=== PATIENT | male | born 1955 | race Caucasian/White ===

== ENCOUNTER → 2022-03-19 16:07 | Outpatient (CLI) | payer MEDICARE, SELFPAY ==
--- NOTE | ~2022-03-19 | XR_ITS ---
XR shoulder LT min 2V DATE: 03/19/2022 16:24 INDICATION: Left shoulder pain TECHNIQUE: 5 views COMPARISON: None FINDINGS: There is severe joint space and prominent particular spurring of the left glenohumeral join t. Mild degenerative change at the left acromion clavicular joint. No fracture or dislocation, periosteal reaction or bone destruction or abnormal left shoulder soft ti ssue calcification is noted. IMPRESSION: Severe osteoarthritis of the left glenohumeral joint Reviewed, dictated and finalized at location A.
== END ==
PROVIDERS: PCP Family Medicine; Visit Provider Family Medicine
DX: M19.012 Primary osteoarthritis, left shoulder (principal)
CPT/HCPCS: 73030

== ENCOUNTER 2023-03-05 10:33 | Emergency (ER) | payer MEDICARE, SELFPAY ==
[2023-03-05 10:51] VITALS: BP 138/86; PULSE 83; RESP 18; TEMP 37.1; O2SAT 100
--- NOTE | 2023-03-05 11:02 | ED.URI ---
HPI - URI/Sore Throat General Chief Complaint: Upper Respiratory Infection Stated Complaint: sorethroat,bilateral ear pain Time Seen by Provider: 03/05/23 10:40 Source: patient Mode of arrival: ambulatory Limitations: no limitations History of Present Illness HPI Narrative: 67-year-old male presents with complaint sore throat, nasal congestion, cough, fatigue past 3-4 days. Afebrile. Denies nausea vomiting diarrhea. No chest pain or shortness of breath. Reports recent exposure to strep from his grandson. Not taking any [id number] medications to treat his symptoms. All systems reviewed and negative except as noted above. Related Data Allergies Allergy/AdvReac Type Severity Reaction Status Date / Time Penicillins Allergy Unknown Unknown Verified 03/05/23 10:56 Review of Systems Review of Systems: CONSTITUTIONAL: Denies fever, chills, or sweats. reports fatigue. EYES: Denies visual changes, redness, or discharge. ENT: Reports rhinorrhea, congestion, sore throat. Denies otalgia. CARDIOVASCULAR: Denies chest pain, palpitations, or edema. RESPIRATORY: Reports cough. Denies dyspnea. GASTROINTESTINAL: Denies abdominal pain, nausea, vomiting, or diarrhea. GENITOURINARY: Denies dysuria or hematuria. SKIN: Denies rash or itching. MUSCULOSKELETAL: Denies back pain, joint pain, or myalgia. NEUROLOGIC: Denies headache, numbness, or weakness. PSYCHIATRIC: Denies anxiety or depression. All other systems reviewed are negative, except as documented in HPI. [facility] Past Medical History Medical History (Updated 03/05/23 @ 11:05 by Catie Gonzalez NP) Abnormal fasting glucose glucose 110 with hemoglobin A1c 5.7 on 08/16/2021. Glucose 113 with hemoglobin A1c 5.9 on 08/26/2022. 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 Chronic pain of right knee Colon cancer screening daughter with history of colon cancer. Patient had normal colonoscopy March, with recheck every 5 years COVID ~05/23/22 Encounter for prostate cancer screening PSA 0.47 on 08/26/2022. Essential (primary) hypertension Hypersomnia Hypertension Male erectile dysfunction, unspecified Melanoma 1998 Mixed hyperlipidemia total cholesterol 163, triglycerides 127, HDL 40, LDL 101 on 08/16/2021. Total cholesterol 171, triglycerides 203, HDL 34, LDL 105 with ratio 5.0 on 08/26/2022. Nail fungal infection Neoplasm of skin (~09/09/21) suspicious skin lesion base right neck laterally with possible basal cell Nocturia PSA 0.43 on 08/16/2021. PSA 0.47 on 08/26/2022. Obesity (BMI 30-39.9) Obesity (BMI 30.0-34.9) Osteoarthritis involving multiple joints on both sides of body Osteoarthritis of right knee Toe ulcer, right Surgical History Surgical History H/O colonoscopy (~03/2019) H/O knee surgery (~2004) Right knee arthroscopy x2 Family History Family History Mother Dementia Father , 20 years old Polioencephalitis Grandparent No problems noted. Grandparent CHF (congestive heart failure) Grandparent Respiratory failure Social History Social History (Updated 09/16/22 @ 11:11 by Alexandra Alexander MA) Smoking status: Never smoker Alcohol intake: current Alcohol use details: beer two or three times a year Substance use: never Substance use type: does not use Current Housing: Decline to Answer Concerned About Future Housing: Decline to Answer Difficulty Paying Gas/Electric Bills: Decline to Answer
== END 2023-03-05 11:14 | disposition home or self-care (01) ==
PROVIDERS: Emergency Provider Nurse Practitioner Family; PCP Family Medicine
DX: J06.9 Acute upper respiratory infection, unspecified (principal); Z20.818 Contact with and (suspected) exposure to other bacterial communicable diseases; Z20.822 Contact with and (suspected) exposure to COVID-19; I10 Essential (primary) hypertension; E78.2 Mixed hyperlipidemia; E66.9 Obesity, unspecified; Z68.32 Body mass index [BMI] 32.0-32.9, adult; M17.11 Unilateral primary osteoarthritis, right knee; Z85.820 Personal history of malignant melanoma of skin
CPT/HCPCS: 87081; 87426; 87880; 99213; C9803; G0463

== ENCOUNTER 2025-04-07 13:25 | Outpatient (CLI) | payer MEDICARE, SELFPAY ==
--- OUTSIDE RECORDS SUMMARY | 2025-04-07 13:27 | XMS_ITS | Clinical Summary ---
Author Organization [facility] Address [address] [place] [address] Care Team Providers Care Line Staker Name Role Phone Nathaniel Rouse MD Primary Care Provider [phone] Allergies Active Allergy Reactions Criticality Noted Date Comments Penicillins Hives,Itching Medium 11/30/2024 Medications amLODIPine (NORVASC) 5 mg tabletIndication s:hypertension Take 1 tablet (5 mg total) by mouth every morning 5 Active atorvastatin (LIPITOR) 10 mg tabletIndication s:hyperlipidemia Take 1 tablet (10 mg total) by mouth nightly at bedtime. [address] (VOLTAREN) 75 mg EC tabletIndication s:Pain Take 1 tablet (75 mg total) by mouth 2 (two) times a day [address] (CYMBALTA) 60 mg capsuleIndicatio ns:Anxiety with Depression Take 1 capsule (60 mg total) by mouth every morning 5 Active irbesartan-hydro chlorothiazide (AVALIDE) 150-12.5 mg per tabletIndication s:hypertension Take 1 tablet by mouth every morning 4 Active levothyroxine (SYNTHROID) 50 mcg tabletIndication s:hypothyroidism Take 1 tablet (50 mcg total) by mouth herbologist before breakfast 5 Active metFORMIN (GLUCOPHAGE) 500 mg tabletIndication s:type 2 diabetes mellitus Take 1 tablet (500 mg total) by mouth 2 (two) times a day with meals 5 Active tamsulosin (FLOMAX) 0.4 mg extended release capsuleIndicatio ns:benign prostatic hyperplasia with lower urinary tract sx Take 1 capsule (0.4 mg total) by mouth every morning 5 Active vitamin E acetate (VITAMIN E ORAL)Indications :supplement Take 180 mg by mouth every morning Active ascorbic acid (vitamin C) 1,000 mg tabletIndication s:supplement Take 1 tablet (1,000 mg total) by mouth every morning Active ibuprofen 200 mg tab/capIndicatio ns:Pain Take 2 tablet/capsule (400 mg total) by mouth every 6 (six) hours as needed for pain Active cholecalciferol (VITAMIN D-3) 2000 unit tabletIndication s:Prevention of Vitamin D Deficiency Take 1 tablet (2,000 Units total) by mouth every morning Active OMEGA-3 FATTY ACIDS-FISH OIL ORALIndications: supplement Take 1,200 mg by mouth every morning Active magnesium oxide 400 mg magnesium capsuleIndicatio ns:supplement Take 1 tablet by mouth nightly Active cranberry extract 500 mg capsuleIndicatio ns:supplement Take 1 capsule by mouth every morning Active vitamin b complex tabletIndication s:Vitamin Deficiency Prevention Take 1 tablet by mouth every morning Active glucosamine/dale priscilla castro A/C/Mn (GLUCOSAMINE-CHO NDROITIN COMPLX ORAL)Indications :supplement Take 1 tablet by mouth every morning Active multivitamin tabletIndication s:Vitamin Deficiency Prevention Take 1 tablet by mouth every morning Active mupirocin (BACTROBAN) 2 % ointment Apply topically 2 (two) times a day for 5 days APPLY TO NOSTRILS TWICE A DAY FOR 5 DAYS PRIOR TO SURGERY. 22 g 5 04/11/20 25 Active Active Problems Problem Noted Date Diagnosed Date Primary osteoarthritis of right knee 01/04/2025 Encounters Date Type Department Care Team Description 04/06/2025 Orders Only [facility] Orthopaedic Surgery [address] [facility] [address] [place] [address] Piero Aguilar MD 04/04/2025 10:45 AM CDT Lab [facility] [address] [address] [address] Preoperative testing; Primary osteoarthritis of right knee; Disorder of cartilage, unspecified; Preop examination; Type 2 diabetes mellitus without complication, unspecified whether correction insulin use (HCC) 04/04/2025 10:30 AM CDT Pre-Admission Testing [facility] Pre-Anesthesia Testing [address] [address] Preoperative testing (Primary Dx) from Last 3 Months Surgical History Surgery Date Site/Laterality Comments MELANOMA RESECTION 09/07/1997 - 09/06/1998 COLONOSCOPY KNEE SURGERY Right scope ESOPHAGOGASTRODUODENOSCOPY CATARACT EXTRACTION 09/07/2021 - 09/06/2022 Family History Medical History Relation Name Comments Anesthesia problems Neg Hx Social History Tobacco Use Types Packs/Day Years Used Date Smoking Tobacco: Never Smokeless Tobacco: Never Tobacco Cessation:Counseling Given: No AUDIT-C Answer Date Recorded Q1: How often do you have a drink containing alcohol? Never 04/04/2025 Q2: How many drinks containi ng alcohol do you have on a typical day when you are drinking? Patient does not drink Q3: How often do you have si x or more drinks on one occasion? Never 04/04/2025 Personal Safety Answer Date Recorded Have you ever been in or are you currently in a harmful physical or emotional relationship or is someone making you feel afraid or unsafe? Denies 04/04/2025 Sex and Gender Information Value Date Recorded Sex Assigned at Not on file Legal Sex Male 10:02 AM CDT Gender Identity Not on file Sexual Orientation Not on file Obstetrics History Last Filed Vital Signs Vital Sign Reading Time Taken Comments Blood Pressure 120/72 04/04/2025 10:43 AM CDT Pulse 76 04/04/2025 10:40 AM CDT Temperature - - Respiratory Rate 18 04/04/2025 10:40 AM CDT Oxygen Saturation 99% 04/04/2025 10:40 AM CDT Inhaled Oxygen Concentration - - Weight 113 kg (249 lb 3.2 oz) 04/04/2025 10:40 A M CDT Height 182.9 cm (6') 04/04/2025 10:40 AM CDT Body Mass Index 33.8 04/04/2025 10:40 AM CDT Plan of Treatment Upcoming Encounters Date Type Department Care Team (Latest Contact Info) Description 04/25/2025 11:35 AM CDT Hospital Encounter [facility] Operating Room [address] [address] Piero Aguilar MD [address] [place] [address] 04/25/2025 11:35 AM CDT Anesthesia Event [facility] Operating Room [address] [address] [address] Jermain Gonzalez, [employer] [address] [facility] [phone] [place] [address] 04/25/2025 11:35 AM CDT - 04/25/2025 1:30 PM CDT Surgery [facility] Operating Room [address] [address] Piero Aguilar MD [address] [place] [address] ARTHROPLASTY TOTAL KNEE - DEPUY Scheduled Procedures Name Priority Associated Diagnoses Date/Ti me ARTHROPLASTY TOTAL KNEE - DEPUY Primary osteoarthritis of right knee 04/25/2025 11:35 AM CDT Health Maintenance Due Date Last Done Comments Albumin Creatinine Ratio, Urine 1954 Colon Cancer Screening-Colonoscopy 1954 Depression Screening 1954 Hepatitis C Screening 1955 Dilated Eye Exam 1954 Foot Exam 1954 Lipid Panel 1954 Hepatitis B Screening 1972 Zoster Vaccine (2 of 3) 10/02/2016 08/07/2016 Well Visit 65+ 2019 Covid-19 Vaccine (5 - 2023-2 5 season) 2024 06/16/2022, 08/22/2021, 11/23/2020, Additional history exists Influenza Vaccine (#1) 2025 , 06/15/2023, 06/12/2022, Additional history exists Hemoglobin A1C 10/05/2025 04/04/2025 Fall Risk Assessment 04/04/2026 04/04/2025 eGFR 04/04/2026 04/04/2025 DTaP/Tdap/Td Vaccine (2 - Td or Tdap) 12/20/2028 12/20/2018 Pneumococcal vaccine 65+ Completed 07/19/2020, 06/07 Procedures Procedure Name Priority Date/Time Associated Diagnosis Comments EGFR Routine 04/04/2025 11:51 AM CDT Primary osteoarthritis of right knee HEMOGLOBIN A1C Routine 04/04/2025 11:51 AM CDT Preop examination Type 2 diabetes mellitus without complication, unspecified whether lobsterman insulin use (HCC) VITAMIN D 25 HYDROXY Routine 04/04/2025 11:51 AM CDT Primary osteoarthritis of right knee Disorder of cartilage, unspecified COMPREHENSIVE METABOLIC PANEL Routine 04/04/2025 11:51 AM CDT Primary osteoarthritis of right knee CBC WITHOUT DIFFERENTIAL Routine 04/04/2025 11:51 AM CDT Preoperative testing from Last 3 Months Results * eGFR (04/04/2025 11:51 AM CDT) eGFR 89 >=60 mL/min/1. 73 m2 Comment: Interpretive Data Reference Interval Normal >/= 90 mL/min/1.73m2 Mildly decreased* 60 - 89 mL/min/1.73m2 Mildly to moderately decreased 45 - 59 mL/min/1.73m2 Moderately to severely decreased 30 - 44 mL/min/1.73m2 Severely decreased 15 - 29 mL/min/1.73m2 Kidney Failure < 15 mL/min/1.73m2 *Relative to young adult level Estimated glomerular filtration rate is determined by the 2020 CKD-EPI equation recommended by the National Kidney Foundation (A Unifying Approach to GFR Estimation: Recommendations of the NKF-ASK Task Force on Reassessing the Inclusion of Race in Diagnosing Kidney Disease, JASN 2020). The CKD-EPI equation should not be used for patients with unstable renal function and has not been validated in children and those over 70. Current interpretive data was last reviewed 2021. Blood 04/04/2025 11:5 1 AM CDT 04/04/2025 12:14 PM CDT Piero Aguilar MD LAB BLOOD ORDERABLES Cinthia l Result Performing Organization Address [facility] [[email or web address]] Co de Phone Number SANKET VANN [address] [address] [facility] [place] [address] * Vitamin D 25 hydroxy (04/04/2025 11:51 AM CDT) Pathologist [facility] Vitamin D 25-OH 39 30 - 80 ng/mL Blood 04/04/2025 11:5 1 AM CDT 04/04/2025 12:14 PM CDT Piero Aguilar MD LAB BLOOD ORDERABLES Cinthia l Result Performing Organization Address [facility] de Phone Number SANKET BARK[place] [address] [address] [facility] [address] [place], [place] [id number] * CBC without differential (04/04/2025 11:51 AM CDT) [facility] WBC 8.60 3.80 - 9.90 K/cumm Hgb 13.8 13.0 - 17.5 g/dL [facility] Hct 41.5 38.9 - 50.3 % [facility] Plt 178 150 - 400 K/cumm [facility] MPV 9.6 9.1 - 12.3 fL [facility] RBC 4.89 4.30 - 5.80 M/cumm [facility] MCV 84.9 81.3 - 96.4 fL [facility] MCH 28.2 27.1 - 33.3 pg [facility] MCHC 33.3 32.3 - 35.7 g/dL [facility] RDW CV 14.2 11.1 - 14.9 % [facility] RDW SD 43.5 35.7 - 48.1 fL [facility] NRBC abs 0.00 0.00 - 0.01 K/cumm [facility] Blood 04/04/2025 11:5 1 AM CDT 04/04/2025 12:13 PM CDT Jermain Gonzalez NP LAB BLOOD ORDERABLES Fin al Result Performing Organization Address [facility] de Phone Number [facility] [address] [address] [place] [address] * (ABNORMAL) Hemoglobin A1c (04/04/2025 11:51 AM CDT) Hgb A1C 6.6(H) 4.0 - 5.6 % Estimated Average Glucose 143 mg/dL [facility] Comment: The ADA recommends reporting an estimated Average Glucose (eAG) with all Hemoglobin A1c results using the equation derived from a study of 507 normal and diabetic adults. Minority populations were underrepresented and children were not included. (Diabetes Care 31:1174-2255, 2008). The eAG is not equivalent to a fasting glucose. Blood 04/04/2025 11:5 1 AM CDT 04/04/2025 12:13 PM CDT Piero Aguilar MD LAB BLOOD ORDERABLES Cinthia l Result Performing Organization Address [facility] de Phone Number [facility] [address] [facility] [place] [address] * Comprehensive metabolic panel (04/04/2025 11:51 AM CDT) Sodium 145 135 - 145 mmol/L Potassium, pl 4.0 3.3 - 4.9 mmol/L [facility] Chloride 106 97 - 110 mmol/L [facility] CO2 30 22 - 32 mmol/L [facility] Anion gap 9 2 - 15 mmol/L [facility] BUN 17 6 - 25 mg/dL [facility] Creatinine 0.92 0.80 - 1.30 mg/dL [facility] Glucose 149 70 - 199 mg/dL [facility] Comment: Interpretive Data Fasting glucose >/= 126 mg/dl is diagnostic for diabetes. Fasting is defined as no caloric intake for at least 8 hours. Fasting glucose between 100 mg/dl to 125 mg/dl is diagnostic of prediabetes. In a patient with classic symptoms of hyperglycemia or hyperglycemic crisis, a random glucose >/= 200 mg/dl is diagnostic for diabetes. In the absence of unequivocal hyperglycemia, results should be confirmed by repeat testing. The classification and Diagnosis of Diabetes Diabetes Care 202; 46: S19-S40. Current interpretive data was last revised 2022. Calcium 9.0 8.5 - 10.3 mg/dL [facility] Bilirubin, total 0.4 0.1 - 1.2 mg/dL [facility] Protein, pl 6.7 6.5 - 8.5 g/dL [facility] Albumin 4.2 3.5 - 5.0 g/dL [facility] Alk phos 61 40 - 130 Units/L [facility] ALT 24 7 - 55 Units/L [facility] AST 26 10 - 50 Units/L [facility] Blood 04/04/2025 11:5 1 AM CDT 04/04/2025 12:14 PM CDT Piero Aguilar MD LAB BLOOD ORDERABLES Cinthia l Result [facility] [address] [facility] Department [place] [address] from Last 3 Months Insurance MEDICARE RAILROAD [facility] MEDICARE SUPPLEMENT MEDICARE RAILROAD [address] MEDICARE SUPPLEMENT Advance Directives For more information, please contact: [phone] Documents on File Type Date Recorded Patient Birth Attendant Expl anation ADVANCE DIRECTIVE 04/05/2025 6:13 PM POWER OF SPECIAL EDUCATION PARA PROFESSIONAL-MEDICAL Care Teams Line Staker Relationship Specialty Start Date End Date Nathaniel Rouse MD [address] [address] PCP - General Family Medicine 11/25/24
--- OUTSIDE RECORDS SUMMARY | 2025-04-07 13:27 | XMS_ITS | Clinical Summary ---
Author Organization [facility] Address [facility] [place] [address] Care Team Providers Care Evaporator Helper Name Role Phone Unavailable Primary Care Provider Unavailabl e Social History Tobacco Use Types Packs/Day Years Used Date Smoking Tobacco: Never Assessed Sex and Gender Information Value Date Recorded Sex Assigned at Not on file Legal Sex Male 7:32 AM CDT Gender Identity Not on file Sexual Orientation Not on file Plan of Treatment Health Maintenance Due Date Last Done Comments Colorectal Cancer Screening Colonoscopy (10 Years) 1954 Hepatitis C 1972 DTaP, Tdap and Td Vaccines ( 1 - Tdap) 1973 Pneumococcal Vaccine: 50+ Ye ars (1 of 1 - PCV) 2004 Zoster Vaccines (1 of 2) 2004 COVID-19 Vaccine ( - 2023-2 5 season) 2024 RSV Immunization or 60+ Years (1 - 1-dose 75+ series) 2029 Meningococcal B Vaccine Aged Out No l onger eligible based on patient's age to complete this topic Meningococcal Vaccine Aged Out No nicole mirta eligible based on patient's age to complete this topic RSV Immunizations Under 20 Months Aged Out No longer eligible based on patient's age to complete this topic
--- OUTSIDE RECORDS SUMMARY | 2025-04-07 13:27 | XMS_ITS | Encounter Summary ---
Author Organization [facility] Address [address] [place] [address] Phone Care Team Providers Care It Service Delivery Manager Name Role Phone Nathaniel Rouse MD Primary Care Provider [phone] Encounter Details Date Type Department Care Team (Late st Contact Info) Description 04/06/2025 Orders Only [facility] Orthopaedic Surgery [address] [facility] [address] [place] [address] Piero Aguilar MD [address] [facility] [address] [place] [address] Social History Tobacco Use Types Packs/Day Years Used Date Smoking Tobacco: Never Smokeless Tobacco: Never AUDIT-C Answer Date Recorded Q1: How often [...] on file Sexual Orientation Not on file documented as of this encounter Ordered Prescriptions Prescription Sig Dispense Quantity Refills Last Filled Start Date End Date mupirocin (BACTROBAN) 2 % ointment Apply topically 2 (two) times a day for 5 days APPLY TO NOSTRILS TWICE A DAY FOR 5 DAYS PRIOR TO SURGERY. 22 g 04/06/2025 documented in this encounter Plan of Treatment Upcoming Encounters Date Type Department Care Team (Latest Contact Info) Description 04/25/2025 11:35 AM CDT Hospital Encounter [facility] Operating Room [address] [place] [address] Piero Aguilar MD [address] [facility] [address] [place] [address] 04/25/2025 11:35 AM CDT Anesthesia Event [facility] Operating Room [address] [place] [address] Jermain Gonzalez SECRETARIAL STENOGRAPHER [address] [facility] [phone] [place] [address] 04/25/2025 11:35 AM CDT - 04/25/2025 1:30 PM CDT Surgery [facility] Operating Room [address] [place] [address] Piero Aguilar MD [address] [facility] [address] [place] [address] ARTHROPLASTY TOTAL KNEE - DEPUY Scheduled Procedures Name Priority Associated Diagnoses Date/Ti me ARTHROPLASTY TOTAL KNEE - DEPUY Primary osteoarthritis of right knee 04/25/2025 11:35 AM CDT documented as of this encounter Visit Diagnoses Not on filedocumented in this encounter Care Teams It Service Delivery Manager Relationship Specialty Start Date End Date Nathaniel Rouse MD [address] [address] PCP - General Family Medicine 11/25/24 documented as of this encounter
--- OUTSIDE RECORDS SUMMARY | 2025-04-07 13:27 | XMS_ITS | Referral Summary ---
Author Organization [facility] Address [address] [place] [address] Care Team Providers Care Bread Slicer Machine Name Role Phone Nathaniel Rouse MD Primary Care Provider [phone] Encounters Date Type Department Care Team Description 04/06/2025 Orders Only [facility] Orthopaedic Surgery [address] [place] [address] Medical Office Building [address] [place] [address] Piero Aguilar MD 04/04/2025 10:45 AM CDT Lab [place] [id number] [place] [place] [id number] Preoperative testing; Primary osteoarthritis of right knee; Disorder of cartilage, unspecified; Preop examination; Type 2 diabetes mellitus without complication, unspecified whether jail insulin use (HCC) 04/04/2025 10:30 AM CDT Pre-Admission Testing [facility] Pre-Anesthesia Testing [address] [place] [address] Preoperative testing (Primary Dx) from Last 3 Months Allergies Active Allergy Reactions Criticality Noted Date Comments Penicillins Hives,Itching Medium 11/30/2024 Medications amLODIPine (NORVASC) 5 mg tabletIndication s:hypertension Take 1 tablet (5 mg total) by mouth every morning Active atorvastatin (LIPITOR) 10 mg tabletIndication s:hyperlipidemia [...] 1 tablet (50 mcg total) by mouth 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 before breakfast 5 Active metFORMIN (GLUCOPHAGE) 500 [...] Date Primary osteoarthritis of right knee 01/04/2025 Social History Tobacco Use Types Packs/Day Years [...] on file Sexual Orientation Not on file Last Filed Vital Signs Vital Sign Reading [...] Description 04/25/2025 11:35 AM CDT Hospital Encounter [facility] Operating Room [address] [place] [place] [address] Piero Aguilar MD [address] [place] [address] 04/25/2025 11:35 AM CDT Anesthesia Event [facility] Operating Room [address] [place] [address] Jermain Gonzalez, FUR COMBER [address] [facility] [phone] [place] [address] 04/25/2025 11:35 AM CDT - 04/25/2025 1:30 PM CDT Surgery [facility] Operating Room [address] [place] [place] [address] Piero Aguilar MD [address] [place] [address] ARTHROPLASTY TOTAL KNEE - DEPUY Scheduled Procedures Name Priority Associated Diagnoses Date/Ti me ARTHROPLASTY TOTAL KNEE - DEPUY Primary osteoarthritis of right knee 04/25/2025 11:35 AM CDT Procedures Procedure Name Priority Date/Time Associated Diagnosis Comments EGFR Routine 04/04/2025 11:51 AM CDT Primary osteoarthritis of right knee HEMOGLOBIN A1C Routine 04/04/2025 11:51 AM CDT Preop examination Type 2 diabetes mellitus without complication, unspecified whether jail insulin use (HCC) VITAMIN D 25 HYDROXY [...] AM CDT 04/04/2025 12:14 PM CDT Piero Aguilra MD LAB BLOOD ORDERABLES Cinthia l Result Performing Organization Address [facility] Co de Phone Number [facility] [address] [email or web address] [place], [place] [id number] * Vitamin D 25 hydroxy (04/04/2025 11:51 AM CDT) Vitamin D 25-OH 39 30 - 80 ng/mL Blood 04/04/2025 11:5 1 AM CDT 04/04/2025 12:14 PM CDT Piero Aguilar MD LAB BLOOD ORDERABLES Cinthia l Result Performing Organization Address City/[facility] Co de Phone Number [facility] [address] [employer] [email or web address] [address] * CBC without differential (04/04/2025 11:51 AM CDT) WBC 8.60 3.80 - 9.90 K/cumm Hgb 13.8 13.0 - 17.5 g/dL [facility] Hct 41.5 38.9 - 50.3 % [facility] Plt 178 150 - 400 K/cumm [facility] MPV 9.6 9.1 - 12.3 fL [facility] RBC 4.89 4.30 - 5.80 M/cumm [facility] MCV 84.9 81.3 - 96.4 fL [facility] MCH 28.2 27.1 - 33.3 pg [facility] MCHC 33.3 32.3 - 35.7 g/dL [facility] RDW CV 14.2 11.1 - 14.9 % [facility] RDW SD 43.5 35.7 - 48.1 fL [facility] NRBC abs 0.00 0.00 - 0.01 K/cumm [facility] Blood 04/04/2025 11:5 1 AM CDT 04/04/2025 12:13 PM CDT us Jermain Gonzalez NP LAB BLOOD ORDERABLES Fin al Result Performing Organization Address City/State/[facility] Phone Number [facility] [address] [facility]. Department [place] [address] * (ABNORMAL) Hemoglobin A1c (04/04/2025 11:51 AM CDT) Hgb A1C 6.6(H) 4.0 - 5.6 % Estimated Average Glucose 143 mg/dL [facility] Comment: The ADA recommends reporting an estimated Average Glucose (eAG) with all Hemoglobin A1c results using the equation derived from a study of 507 normal and diabetic adults. Minority populations were underrepresented and children were not included. (Diabetes Care 31:9856-5854, 2008). The eAG is not equivalent to a fasting glucose. Blood 04/04/2025 11:5 1 AM CDT 04/04/2025 12:13 PM CDT Piero Aguilar MD LAB BLOOD ORDERABLES Cinthia l Result Performing Organization Address City/State/[facility] Co de Phone Number [facility] [address] [facility]. Department [place] [address] * Comprehensive metabolic panel (04/04/2025 11:51 AM CDT) Sodium 145 135 - 145 mmol/L Potassium, pl 4.0 3.3 - 4.9 mmol/L [facility] Chloride 106 97 - 110 mmol/L [facility] CO2 30 22 - 32 mmol/L [facility] Anion gap 9 2 - 15 mmol/L [facility] BUN 17 6 - 25 mg/dL [facility] Creatinine 0.92 0.80 - 1.30 mg/dL [facility] [...] Albumin 4.2 3.5 - 5.0 g/dL [facility] Alk phos 61 40 - 130 Units/L [facility] ALT 24 7 - 55 Units/L [facility] AST 26 10 - 50 Units/L [facility] Blood 04/04/2025 11:5 1 AM CDT 04/04/2025 12:14 PM CDT Piero Aguilar MD LAB BLOOD ORDERABLES Cinthia l Result Performing Organization Address City/[facility]/ZIP Co de Phone Number [facility] [address] [facility] [place] [address] from Last 3 Months Insurance MEDICARE [place] [address] MEDICARE SUPPLEMENT [place]IC[place] [address] [place] [address] MEDICARE SUPPLEMENT Member Subscriber Plan / Payer (Ef fective 2021-Present) Name:Kiel Lyles Relation to Subscriber:Self Name:Kiel Lyles Payer ID:[id number] Group ID:[id number] Type:COMMERCIAL Address: [facility] [id number] [place] [id number] Advance Directives For more information, please contact: [phone] Documents on File Type Date Recorded 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
--- NOTE | 2025-04-07 13:33 | ECG_ITS ---
Test Date: 2025-04-07 13:47:52 Measurements Intervals Ruffin Rate: 59 P: 49 RI: 193 QRS: -27 QRSD: 91 T: 31 QT: 370 QTc: 368 Interpretive Statements SINUS BRADYCARDIA INCOMPLETE RIGHT BUNDLE BRANCH BLOCK CONSIDER INFERIOR INFARCT, AGE INDETERMINATE BORDERLINE ST-T WAVE ABNORMALITY- HIGH LATERAL LEADS BASELINE ARTIFACT- V4-V6 ABNORMAL ECG No previous ECG available for comparison Electronically Signed On 04-07-2025 14:26:41 CDT by Faizan Mccoy D.O.
== END 2025-04-07 13:26 | disposition home or self-care (01) ==
PROVIDERS: PCP Family Medicine; Visit Provider Family Medicine
DX: Z01.818 Encounter for other preprocedural examination (principal); I10 Essential (primary) hypertension; I45.10 Unspecified right bundle-branch block; R94.31 Abnormal electrocardiogram [ECG] [EKG]
CPT/HCPCS: 93005